=== PATIENT | female | born 1995 | race Caucasian/White ===

== ENCOUNTER 2018-03-28 17:22 | Emergency (ER) | payer OTHER ==
[2018-03-28] MEDS ORDERED: Morphine 2 MG/ML Syringe IVPUSH ONE (17:48)
[2018-03-28] MEDS ORDERED: Ondansetron 4 MG/2 ML SDV IVPUSH ONE (17:48)
[2018-03-28] MEDS ORDERED: Sodium Chloride 0.9% 10 ML Syringe FLUSH PRN (17:48)
[2018-03-28] MEDS ORDERED: Sodium Chloride 0.9% 1,000 ML IV ONE (17:48)
--- NOTE | 2018-03-28 18:15 | EDM.PDOC ---
ED HPI GENERAL MEDICAL PROBLEM - General Chief Complaint: Flank Pain Stated Complaint: ABDOMINAL PAIN Time Seen by Provider: 03/28/18 17:39 Source of Information: Reports: Patient History Limitations: Reports: No Limitations - History of Present Illness INITIAL COMMENTS - FREE TEXT/NARRATIVE: 22-year-old female presents for evaluation and treatment of left-sided flank pain. Patient reports that the pain came on suddenly about an hour to an hour and half prior to arrival in the ER. She states the pain is rated as 8 out of 10. Feels comfortable walking around. she was diagnosed with the urinary tract infection by the walk-in clinic. She was started on antibiotic and has been taking this as prescribed. Reports associated symptoms of nausea. No fevers or vomiting. She took Tylenol for headache around 1300 but continues to have significant pain. Patient feels she has a kidney stone. States 3 years ago she had several kidney st. She's never had a analyzed. She has never had to see urology or had any procedures to break up the kidney stones. Patient is an IUD in place. Last menstrual period was about 2 weeks ago. Left Flank Pain Score (Numeric/FACES): 9 - Related Data Allergies Allergy/AdvReac Type Severity Reaction Status Date / Time Penicillins Allergy Rash Verified 03/28/18 17:34 Sulfa (Sulfonamide Allergy Rash Verified 03/28/18 17:34 Antibiotics) Home Meds: Home Meds Acetaminophen/oxyCODONE [Percocet 325-5 MG] 1 each PO Q4HR PRN #20 tab 03/28/18 [Rx] Nitrofurantoin Macrocrystal [Macrodantin] 100 mg PO BID 03/28/18 [History] Phenazopyridine HCl [Azo Urinary Pain Relief] 1 tab PO TID 03/28/18 [History] Tamsulosin HCl [Flomax] 0.4 mg PO DAILY #10 cap.er.24h 03/28/18 [Rx] Past Medical History Musculoskeletal History: Reports: Other (See Below) Other Musculoskeletal History: back surgery to low back for herniated disc Hematologic History: Reports: Anemia - Past Surgical History GI Surgical History: Reports: Cholecystectomy Social & Family History - Tobacco Use Smoking Status *Q: Never Smoker - Caffeine Use Caffeine Use: Reports: Tea - Recreational Drug Use Recreational Drug Use: No ED ROS GENERAL - Review of Systems Review Of Systems: See Below Constitutional: Denies: Fever, Chills GI/Abdominal: Reports: Abdominal Pain (LLQ), Nausea. Denies: Vomiting : Reports: Flank Pain (left), Frequency (improving). Denies: Dysuria ( improving) Neurological: Reports: Headache ED EXAM, RENAL/ - Physical Exam Exam: See Below Exam Limited By: No Limitations General Appearance: Alert, WD/WN, Anxious, Moderate Distress, Obese, Other ( pacing) Respiratory/Chest: No Respiratory Distress, Lungs Clear, Normal Breath Sounds Cardiovascular: Normal Peripheral Pulses, Regular Rate, Rhythm, No Murmur GI/Abdominal: Normal Bowel Sounds, Soft, Non-Tender Back Exam: Normal Inspection. No: CVA Tenderness (L), CVA Tenderness (R) Neurological: Alert, Oriented, Normal Cognition Psychiatric: Normal Affect, Normal Mood Skin Exam: Warm, Dry, Normal Color Course - Vital Signs Last Recorded V/S: Last Vital Signs Temp 36.3 C 03/28/18 17:30 Pulse 74 03/28/18 18:20 Resp 18 03/28/18 18:20 BP 130/78 03/28/18 18:20 Pulse Ox 99 03/28/18 18:20 - Orders/Labs/Meds Orders: Active Orders 24 hr Category Date Time Status Peripheral IV Care [RC] . DIRECTED Care 03/28/18 17:48 Active Abdomen Pelvis wo Cont [CT] Stat Exams 03/28/18 17:49 Taken CULTURE URINE [RM] Stat Lab 03/28/18 19:20 Received UA W/MICROSCOPIC [URIN] Stat Lab 03/28/18 19:20 Ordered Peripheral IV Insertion Adult [OM.PC] Routine Oth 03/28/18 17:47 Ordered Labs: Laboratory Tests 03/28/18 03/28/18 03/28/18 Range/Units 18:20 18:20 18:20 WBC 7.76 (3.98-10.04) K/mm3 RBC 4.74 (3.98-5.22) M/mm3 Hgb 10.8 L (11.2-15.7) gm/L Hct 35.0 (34.1-44.9) % MCV 73.8 L (79.4-94.8) fl MCH 22.8 L (25.6-32.2) pg MCHC 30.9 L (32.2-35.5) g/dl RDW Std Deviation 46.2 (36.4-46.3) fL Plt Count 289 (182-369) K/mm3 MPV 11.0 (9.4-12.3) fl Neut % (Auto) 72.5 H (34.0-71.1) % Lymph % (Auto) 18.2 L (19.3-51.7) % [place] % (Auto) 8.5 (4.7-12.5) % Eos % (Auto) 0.5 L (0.7-5.8) Baso % (Auto) 0.3 (0.1-1.2) % Neut # (Auto) 5.63 (1.56-6.13) K/mm3 Lymph # (Auto) 1.41 (1.18-3.74) K/mm3 [place] # (Auto) 0.66 H (0.24-0.36) K/mm3 Eos # (Auto) 0.04 (0.04-0.36) K/mm3 Baso # (Auto) 0.02 (0.01-0.08) K/mm3 Manual Slide Review Abnormal smear Sodium 142 (136-145) mEq/L Potassium 3.6 (3.5-5.1) mEq/L Chloride 107 (98-107) mEq/L Carbon Dioxide 25 (21-32) mEq/L Anion Gap 13.6 (5-15) BUN 8 (7-18) mg/dL Creatinine 0.9 (0.55-1.02) mg/dL Est Cr Clr Drug Dosing 99.74 mL/min Estimated GFR (MDRD) > 60 (>60) mL/min BUN/Creatinine Ratio 8.9 L (14-18) Glucose 89 (74-106) mg/dL Calcium 8.5 (8.5-10.1) mg/dL Total Bilirubin 0.3 (0.2-1.0) mg/dL AST 13 L (15-37) U/L ALT 17 (14-59) U/L Alkaline Phosphatase 69 (46-116) U/L C-Reactive Protein < 0.2 (<1.0) mg/dL Total Protein 6.9 (6.4-8.2) g/dl Albumin 3.6 (3.4-5.0) g/dl Globulin 3.3 gm/dL Albumin/Globulin Ratio 1.1 (1-2) HCG, Qual Negative (NEGATIVE) Urine Color (Yellow) Urine Appearance (Clear) Urine pH (5.0-8.0) Ur Specific [place] (1.005-1.030) Urine Protein (Negative) Urine Glucose (UA) (Negative) Urine Ketones (Negative) Urine Occult Blood (Negative) Urine Nitrite (Negative) Urine Bilirubin (Negative) Urine Urobilinogen (0.2-1.0) Ur Leukocyte Esterase (Negative) Urine RBC (0-5) /hpf Urine WBC (0-5) /hpf Ur Epithelial Cells (0-5) /hpf Urine Bacteria (FEW) /hpf Urine Mucus (FEW) /hpf 03/28/18 Range/Units 19:20 WBC (3.98-10.04) K/mm3 RBC (3.98-5.22) M/mm3 Hgb (11.2-15.7) gm/L Hct (34.1-44.9) % MCV (79.4-94.8) fl MCH (25.6-32.2) pg MCHC (32.2-35.5) g/dl RDW Std Deviation (36.4-46.3) fL Plt Count (182-369) K/mm3 MPV (9.4-12.3) fl Neut % (Auto) (34.0-71.1) % Lymph % (Auto) (19.3-51.7) % [place] % (Auto) (4.7-12.5) % Eos % (Auto) (0.7-5.8) Baso % (Auto) (0.1-1.2) % Neut # (Auto) (1.56-6.13) K/mm3 Lymph # (Auto) (1.18-3.74) K/mm3 [place] # (Auto) (0.24-0.36) K/mm3 Eos # (Auto) (0.04-0.36) K/mm3 Baso # (Auto) (0.01-0.08) K/mm3 Manual Slide Review Sodium (136-145) mEq/L Potassium (3.5-5.1) mEq/L Chloride (98-107) mEq/L Carbon Dioxide (21-32) mEq/L Anion Gap (5-15) BUN (7-18) mg/dL Creatinine (0.55-1.02) mg/dL Est Cr Clr Drug Dosing mL/min Estimated GFR (MDRD) (>60) mL/min BUN/Creatinine Ratio (14-18) Glucose (74-106) mg/dL Calcium (8.5-10.1) mg/dL Total Bilirubin (0.2-1.0) mg/dL AST (15-37) U/L ALT (14-59) U/L Alkaline Phosphatase (46-116) U/L C-Reactive Protein (<1.0) mg/dL Total Protein (6.4-8.2) g/dl Albumin (3.4-5.0) g/dl Globulin gm/dL Albumin/Globulin Ratio (1-2) HCG, Qual (NEGATIVE) Urine Color Yellow (Yellow) Urine Appearance Clear (Clear) Urine pH 7.0 (5.0-8.0) Ur Specific [place] 1.015 (1.005-1.030) Urine Protein Negative (Negative) Urine Glucose (UA) Negative (Negative) Urine Ketones Negative (Negative) Urine Occult Blood 2+ H (Negative) Urine Nitrite Negative (Negative) Urine Bilirubin Negative (Negative) Urine Urobilinogen 0.2 (0.2-1.0) Ur Leukocyte Esterase 2+ H (Negative) Urine RBC 10-20 H (0-5) /hpf Urine WBC 20-30 H (0-5) /hpf Ur Epithelial Cells 30-40 H (0-5) /hpf Urine Bacteria Few (FEW) /hpf Urine Mucus Not seen (FEW) /hpf Meds: Medications Discontinued Medications Generic Name Dose Route Start Last Admin Trade Name Freq PRN Reason Stop Dose Admin Sodium Chloride 1,000 mls @ 999 mls/hr 03/28/18 17:48 03/28/18 18:02 Normal Saline IV 03/28/18 18:48 999 mls/hr ONETIME ONE Administration Morphine Sulfate 2 mg 03/28/18 17:48 03/28/18 18:03 Morphine IVPUSH 03/28/18 17:49 2 mg ONETIME ONE Administration Ondansetron HCl 4 mg 03/28/18 17:48 03/28/18 18:02 Zofran IVPUSH 03/28/18 17:49 4 mg ONETIME ONE Administration Sodium Chloride 10 ml 03/28/18 17:48 03/28/18 18:02 Saline Flush FLUSH 10 ml ASDIRECTED PRN Administration Keep Vein Open - Radiology Interpretation Free Text/Narrative:: CT of the abdomen and pelvis without contrast impression per vrad: Or millimeter calcification present within the distal left ureter at the ureterovesicular junction. Mild left hydroureter and hydronephrosis present. - Re-Assessments/Exams Free Text/Narrative Re-Assessment/Exam: 03/28/18 20:11 Patient reports good pain control with the 2 mg IV morphine and good control of nausea. She looks more comfortable at this time. I reviewed the labs and imaging with the patient. She does have a kidney stone. It will likely pass on her own, however, if it does not she will need to see urology. I will have her strain her urine as it sounds she's had multiple stones in the past and has never had these analyze. Encouraged to drink fluids. Will start on Flomax. Percocet for pain control. I will have her continue the Macrobid as prescribed. Follow up with primary care this week. Patient was able to pull up her urine culture from [facility]. Reported gram-positive cocci. No susceptibility report present, possibly contamination. Discharge instructions as documented. Departure - Departure Time of Disposition: 20:11 Disposition: Home, Self-Care 01 Condition: Fair Clinical Impression: Left nephrolithiasis - Discharge Information Prescriptions: Acetaminophen/oxyCODONE [Percocet 325-5 MG] 1 each PO Q4HR PRN #20 tab PRN Reason: Pain Tamsulosin HCl [Flomax] 0.4 mg PO DAILY #10 cap.er.24h Instructions: Kidney Stones, [id number] Referrals: PCP,None [Primary Care Provider] - Denisa Ayala PA-C [Physician Telecommunications Switch Technician] - Forms: ED Department Discharge Additional Instructions: you were given medication in the ER that can affect your ability to drive and operate machinery. Do not drive or operate machinery within 12 hours of taking perception narcotic pain medication. [id number] ibuprofen 800 mg every 6 hours as needed for pain. For pain unrelieved by ibuprofen you may take Percocet 1-2 tabs every 4-6 hours as needed for pain. Do not drive or operate machinery within 12 hours of taking Percocet. Percocet is habit-forming, take as few if these as needed to control your pain. Strain your urine. finish you antibiotic as prescribed. Take the Flomax 1 tab daily. Make sure you're drinking plenty of fluids. Follow-up with family medicine this week for recheck of your symptoms. Recommend Shanta Ojeda or Dr. Camarillo at the [facility]. Call [phone] to schedule with one of them. Please return to the ER if your symptoms change or worsen.ciney. - My Orders Last 24 Hours: My Active Orders 03/28/18 17:47 Peripheral IV Insertion Adult [OM.PC] Routine 03/28/18 17:48 Peripheral IV Care [RC] . DIRECTED 03/28/18 17:49 Abdomen Pelvis wo Cont [CT] Stat 03/28/18 19:20 CULTURE URINE [RM] Stat UA W/MICROSCOPIC [URIN] Stat - Assessment/Plan Last 24 Hours: My Active Orders 03/28/18 17:47 Peripheral IV Insertion Adult [OM.PC] Routine 03/28/18 17:48 Peripheral IV Care [RC] . DIRECTED 03/28/18 17:49 Abdomen Pelvis wo Cont [CT] Stat 03/28/18 19:20 CULTURE URINE [RM] Stat UA W/MICROSCOPIC [URIN] Stat
--- NOTE | 2018-03-29 14:26 | CT ---
CT abdomen and pelvis Technique: Multiple axial sections were obtained from above the dome of the diaphragm inferiorly through the UVJ symphysis. Intravenous and oral contrast was not utilized. Study has been performed as a ureteral stone protocol. Findings: Left-sided hydronephrosis is seen with dilated ureter down to the UVJ caused by a distal left ureteral stone measuring 5.2 mm located at the UVJ. Multiple small nonobstructing calculi are seen within both kidneys measuring less than 5 mm in size. Visualized lung bases show minimal atelectasis. Noncontrast appearance of the liver and spleen appears within normal limits. Adrenal glands show no nodule. Pancreas shows no discrete abnormality. Gallbladder not identified. Aorta shows no aneurysmal dilatation. No retroperitoneal adenopathy or mesenteric abnormalities are seen. Appendix is seen which appears normal in size. No pelvic mass is seen. Cystic change is noted within both ovaries which is felt to be physiologic. Incidental IUD is present within the endometrial cavity of the uterus. Bone window settings were reviewed which show incidental limbus vertebra off the anterior and superior endplates of L4 and L5. Impression: 1. 5.2 mm obstructing stone within the distal left ureter at the UVJ. 2. Multiple small nonobstructing calculi within both kidneys measuring less than 5 mm. 3. Other findings as noted above which are felt to be incidental. Diagnostic code #3 Agree with preliminary report issued by [employer] ([facility] preliminary report dictated on 03/28/18, 8:45 PM Central Time)
== END 2018-03-28 20:23 | disposition home or self-care (01) ==
LOC: JD.ED 17:22
DX: N13.2 Hydronephrosis with renal and ureteral calculous obstruction (principal); Z88.0 Allergy status to penicillin; Z88.2 Allergy status to sulfonamides; Z79.899 Other long term (current) drug therapy; Z90.49 Acquired absence of other specified parts of digestive tract; Z87.442 Personal history of urinary calculi
CPT/HCPCS: 36415; 74176; 80053; 81001; 84703; 85025; 86140; 87086; 96361; 96374; 96375; 99284; J2270; J2405; J7040; J7050

== ENCOUNTER 2019-02-17 04:47 | Emergency (ER) | payer OTHER ==
[2019-02-17] MEDS ORDERED: Ondansetron 4 MG/2 ML SDV IVPUSH ONE ×2 (05:18→08:05)
[2019-02-17] MEDS ORDERED: HYDROmorphone 1 MG/ML Syringe IVPUSH ONE (05:18)
[2019-02-17] MEDS ORDERED: Sodium Chloride 0.9% 10 ML Syringe FLUSH PRN (05:18)
--- NOTE | 2019-02-17 05:22 | EDM.PDOC ---
<Geronimo Wood - Last Filed: 02/17/19 06:58> ED HPI GENERAL MEDICAL PROBLEM - General Chief Complaint: Flank Pain Stated Complaint: KIDNEY STONE Time Seen by Provider: 02/17/19 05:08 Source of Information: Reports: Patient, RN Notes Reviewed - History of Present Illness INITIAL COMMENTS - FREE TEXT/NARRATIVE: 23-year-old female with onset of right back and flank discomfort about 5 hours ago. Technique a couple of pain pills that she had from a prior kidney stone problem which gave her some initial relief but then the pain did come back again with fairly severe right flank and back discomfort at this time. The pain so far has not radiated to the right abdomen or groin. She has had some nausea but no vomiting. She has had some voiding frequency but no dysuria. She does have history of kidney stones on at least 2 prior occasions. She does have history of an IUD in place so "should not be " Right Flank Pain Score (Numeric/FACES): 7 - Related Data Allergies Allergy/AdvReac Type Severity Reaction Status Date / Time Penicillins Allergy Rash Verified 02/17/19 04:59 pineapple Allergy Anaphylactic Verified 02/17/19 04:59 Shock Sulfa (Sulfonamide Allergy Rash Verified 02/17/19 04:59 Antibiotics) Home Meds: Home Meds Hydrocodone/Acetaminophen [Hydrocodon-Acetaminophen 5-325] 1 - 2 each PO Q6HR PRN #20 tablet 02/17/19 [Rx] Ondansetron [Zofran ODT] 4 mg PO Q6H PRN #20 tab.dis 02/17/19 [Rx] Past Medical History Musculoskeletal History: Reports: Other (See Below) Other Musculoskeletal History: back surgery to low back for herniated disc Hematologic History: Reports: Anemia - Past Surgical History GI Surgical History: Reports: Cholecystectomy Social & Family History - Tobacco Use Smoking Status *Q: Never Smoker - Caffeine Use Caffeine Use: Reports: None - Recreational Drug Use Recreational Drug Use: No ED ROS GENERAL - Review of Systems Review Of Systems: See Below Constitutional: Denies: Fever, Chills, Diaphoresis HEENT: Reports: No Symptoms Respiratory: Denies: Shortness of Breath Cardiovascular: Denies: Chest Pain GI/Abdominal: Reports: Nausea. Denies: Abdominal Pain, Vomiting : Reports: Frequency Musculoskeletal: Reports: Back Pain Skin: Reports: No Symptoms Neurological: Reports: No Symptoms ED EXAM, RENAL/ - Physical Exam Exam: See Below General Appearance: Alert, Moderate Distress Throat/Mouth: Normal Inspection Head: Atraumatic Neck: Supple Respiratory/Chest: No Respiratory Distress, Lungs Clear, Normal Breath Sounds Cardiovascular: Regular Rate, Rhythm GI/Abdominal: Soft, Non-Tender. No: Guarding Back Exam: CVA Tenderness (R) Extremities: Normal Inspection Neurological: Alert, Oriented, No Motor/Sensory Deficits Skin Exam: Warm, Dry, Normal Color, No Rash Course - Vital Signs Last Recorded V/S: Last Vital Signs Temp 97.1 F 02/17/19 08:11 Pulse 66 02/17/19 08:11 Resp 16 02/17/19 08:11 BP 123/69 02/17/19 08:11 Pulse Ox 97 02/17/19 08:11 - Orders/Labs/Meds Orders: Active Orders 24 hr Category Date Time Status Peripheral IV Care [RC] . DIRECTED Care 02/17/19 05:18 Active Sodium Chloride 0.9% [Saline Flush] Med 02/17/19 05:18 Active 10 ml FLUSH ASDIRECTED PRN Peripheral IV Insertion Adult [OM.PC] Stat Oth 02/17/19 05:17 Ordered Medication Orders Sodium Chloride (Saline Flush) 10 ml FLUSH ASDIRECTED PRN PRN Reason: Keep Vein Open Last Admin: 02/17/19 05:31 Dose: 10 ml Labs: Laboratory Tests 02/17/19 02/17/19 02/17/19 Range/Units 05:05 05:05 05:28 WBC 7.08 (3.98-10.04) K/mm3 RBC 4.78 (3.98-5.22) M/mm3 Hgb 13.0 (11.2-15.7) gm/L Hct 39.6 (34.1-44.9) % MCV 82.8 (79.4-94.8) fl MCH 27.2 (25.6-32.2) pg MCHC 32.8 (32.2-35.5) g/dl RDW Std Deviation 43.3 (36.4-46.3) fL Plt Count 246 (182-369) K/mm3 MPV 11.0 (9.4-12.3) fl Neut % (Auto) 66.4 (34.0-71.1) % Lymph % (Auto) 21.8 (19.3-51.7) % [place] % (Auto) 10.5 (4.7-12.5) % Eos % (Auto) 1.1 (0.7-5.8) Baso % (Auto) 0.1 (0.1-1.2) % Neut # (Auto) 4.70 (1.56-6.13) K/mm3 Lymph # (Auto) 1.54 (1.18-3.74) K/mm3 [place] # (Auto) 0.74 H (0.24-0.36) K/mm3 Eos # (Auto) 0.08 (0.04-0.36) K/mm3 Baso # (Auto) 0.01 (0.01-0.08) K/mm3 Sodium (136-145) mEq/L Potassium (3.5-5.1) mEq/L Chloride (98-107) mEq/L Carbon Dioxide (21-32) mEq/L Anion Gap (5-15) BUN (7-18) mg/dL Creatinine (0.55-1.02) mg/dL Est Cr Clr Drug Dosing mL/min Estimated GFR (MDRD) (>60) mL/min BUN/Creatinine Ratio (14-18) Glucose (74-106) mg/dL Calcium (8.5-10.1) mg/dL Total Bilirubin (0.2-1.0) mg/dL AST (15-37) U/L ALT (14-59) U/L Alkaline Phosphatase (46-116) U/L Total Protein (6.4-8.2) g/dl Albumin (3.4-5.0) g/dl Globulin gm/dL Albumin/Globulin Ratio (1-2) Lipase (73-393) U/L HCG, Qual (NEGATIVE) Urine Color Yellow (Yellow) Urine Appearance Clear (Clear) Urine pH 7.0 (5.0-8.0) Ur Specific [place] 1.020 (1.005-1.030) Urine Protein Trace H (Negative) Urine Glucose (UA) Negative (Negative) Urine Ketones Negative (Negative) Urine Occult Blood Negative (Negative) Urine Nitrite Negative (Negative) Urine Bilirubin Negative (Negative) Urine Urobilinogen 0.2 (0.2-1.0) Ur Leukocyte Esterase 1+ H (Negative) Urine RBC 0-5 (0-5) /hpf Urine WBC 0-5 (0-5) /hpf Ur Epithelial Cells 20-30 H (0-5) /hpf Urine Bacteria Few (FEW) /hpf Urine Mucus Few (FEW) /hpf Urine HCG, Qual Negative (NEGATIVE) 02/17/19 02/17/19 Range/Units 05:28 05:28 WBC (3.98-10.04) K/mm3 RBC (3.98-5.22) M/mm3 Hgb (11.2-15.7) gm/L Hct (34.1-44.9) % MCV (79.4-94.8) fl MCH (25.6-32.2) pg MCHC (32.2-35.5) g/dl RDW Std Deviation (36.4-46.3) fL Plt Count (182-369) K/mm3 MPV (9.4-12.3) fl Neut % (Auto) (34.0-71.1) % Lymph % (Auto) (19.3-51.7) % [place] % (Auto) (4.7-12.5) % Eos % (Auto) (0.7-5.8) Baso % (Auto) (0.1-1.2) % Neut # (Auto) (1.56-6.13) K/mm3 Lymph # (Auto) (1.18-3.74) K/mm3 [place] # (Auto) (0.24-0.36) K/mm3 Eos # (Auto) (0.04-0.36) K/mm3 Baso # (Auto) (0.01-0.08) K/mm3 Sodium 138 (136-145) mEq/L Potassium 4.0 (3.5-5.1) mEq/L Chloride 105 (98-107) mEq/L Carbon Dioxide 23 (21-32) mEq/L Anion Gap 14.0 (5-15) BUN 10 (7-18) mg/dL Creatinine 0.8 (0.55-1.02) mg/dL Est Cr Clr Drug Dosing 115.28 mL/min Estimated GFR (MDRD) > 60 (>60) mL/min BUN/Creatinine Ratio 12.5 L (14-18) Glucose 100 (74-106) mg/dL Calcium 8.4 L (8.5-10.1) mg/dL Total Bilirubin 0.3 (0.2-1.0) mg/dL AST 21 (15-37) U/L ALT 23 (14-59) U/L Alkaline Phosphatase 74 (46-116) U/L Total Protein 6.6 (6.4-8.2) g/dl Albumin 3.2 L (3.4-5.0) g/dl Globulin 3.4 gm/dL Albumin/Globulin Ratio 0.9 L (1-2) Lipase 95 (73-393) U/L HCG, Qual Negative (NEGATIVE) Urine Color (Yellow) Urine Appearance (Clear) Urine pH (5.0-8.0) Ur Specific [place] (1.005-1.030) Urine Protein (Negative) Urine Glucose (UA) (Negative) Urine Ketones (Negative) Urine Occult Blood (Negative) Urine Nitrite (Negative) Urine Bilirubin (Negative) Urine Urobilinogen (0.2-1.0) Ur Leukocyte Esterase (Negative) Urine RBC (0-5) /hpf Urine WBC (0-5) /hpf Ur Epithelial Cells (0-5) /hpf Urine Bacteria (FEW) /hpf Urine Mucus (FEW) /hpf Urine HCG, Qual (NEGATIVE) Meds: Medications Generic Name Dose Route Start Last Admin Trade Name Nitin PRN Reason Stop Dose Admin Sodium Chloride 10 ml 02/17/19 05:18 02/17/19 05:31 Saline Flush FLUSH 10 ml ASDIRECTED PRN Administration Keep Vein Open Discontinued Medications Generic Name Dose Route Start Last Admin Trade Name Nitin PRN Reason Stop Dose Admin Hydromorphone HCl 1 mg 02/17/19 05:18 02/17/19 05:30 Dilaudid IVPUSH 02/17/19 05:19 0.5 mg ONETIME ONE Administration Metoclopramide HCl 5 mg 02/17/19 06:35 02/17/19 06:41 Reglan IVPUSH 02/17/19 06:36 5 mg ONETIME ONE Administration Ondansetron HCl 4 mg 02/17/19 05:18 02/17/19 05:30 Zofran IVPUSH 02/17/19 05:19 4 mg ONETIME ONE Administration Ondansetron HCl 4 mg 02/17/19 08:05 02/17/19 08:08 Zofran IVPUSH 02/17/19 08:06 4 mg ONETIME ONE Administration - Re-Assessments/Exams Free Text/Narrative Re-Assessment/Exam: 02/17/19 06:37. Urine test is negative, does not show UTI. With her discomfort right back and flank and history of prior kidney stones there was strong concern for recurrent kidney stone. CT of abdomen pelvis does multiple 2- 3 mm stones in each kidney but no evidence for ureterolithiasis or hydronephrosis. However there is a large 9 cm right ovarian cyst. Small amount of fluid in the cul-de-sac. Pelvic ultrasound suggested to further evaluate the ovarian cyst. Radiology does hold a 7:30 slot open for emergency ultrasound which is only 50 minutes from now also patient will wait, get the ultrasound done for further information. She is doing okay for pain after 0.5 mg Dilaudid IV but is getting more nauseated, will give Reglan 5 mg IV at this time. 02/17/19 06:58. Pelvic ultrasound has been recommended by radiology. She is willing to wait for the 7:30 emergency slot that is available for ED patients. Order has been submitted. It is change of shift, Will transfer care to Dr Perry at this time. Departure - Departure Disposition: Home, Self-Care 01 Clinical Impression: Ovarian cyst Qualifiers: Laterality: right Qualified Code(s): N83.201 - Unspecified ovarian cyst, right side - Discharge Information Prescriptions: Hydrocodone/Acetaminophen [Hydrocodon-Acetaminophen 5-325] 1 - 2 each PO Q6HR PRN #20 tablet PRN Reason: Pain Ondansetron [Zofran ODT] 4 mg PO Q6H PRN #20 tab.dis PRN Reason: Nausea\\vomiting Referrals: PCP,None [Primary Care Provider] - Nimco Herrera MD [Physician] - 3 Days Forms: ED Department Discharge Additional Instructions: Take tylenol or motrin for pain. If that does not help, try the hydrocodone. Take zofran as needed for nausea or vomiting. Follow up with Dr Herrera this week or early next week. Please return if you are worse. <Shilo Perry - Last Filed: 02/17/19 09:13> Course - Re-Assessments/Exams Free Text/Narrative Re-Assessment/Exam: 02/17/19 09:[address] Wood. I ordered some labs and they look good. Her CBC and CMP look good. Her UA shows no UTI. Her lipase is normal. She had more nausea so I ordered more zofran. The US shows a 6.8cm simple appearing cyst within the right ovary. Free fluid within the pelvis likely representing cyst leakage. Recommend repeat pelvic US in 3-4 months to evaluate for resolution. She feels better. I will get her something for pain and nausea and have her follow up with Dr Herrera. Departure - Departure Time of Disposition: 09:10 Condition: Good - Discharge Information *PRESCRIPTION DRUG MONITORING PROGRAM REVIEWED*: No *COPY OF PRESCRIPTION DRUG MONITORING REPORT IN PATIENT DAIN: No
[2019-02-17] MEDS ORDERED: Metoclopramide 10 MG/2 ML SDV IVPUSH ONE (06:35)
--- NOTE | 2019-02-17 08:16 | CT ---
CT abdomen and pelvis Technique: Multiple axial sections were obtained of the diaphragm inferiorly through the pubic symphysis. Intravenous and oral contrast was not utilized. Study has been performed as a ureteral stone protocol. Comparison: Previous CT abdomen and pelvis exam of 03/28/18. Findings: Small portion of the visualized lung bases show nothing acute. Noncontrast appearance of the liver and spleen appear within normal limits. Adrenal glands show no nodule. Gallbladder is not identified. Pancreas appears within normal limits. Aorta shows no aneurysm. Appendix is seen which is normal in size. No retroperitoneal adenopathy or mesenteric abnormalities are seen. IUD present within the uterus. Cyst is noted adjacent to the right side of the uterus measuring 8.5 cm in size presumably representing large ovarian cyst. There is a small amount of free fluid seen posteriorly most likely due to cyst leakage. No additional pelvic abnormality is seen. Small nonobstructing calculi are seen within both kidneys which appear similar to prior CT exam. No ureteral dilatation or ureteral stone is seen. Bone window settings were reviewed which showed small incidental limbus vertebra within the anterior and superior endplates of L4 and L5. No acute osseous abnormality is seen. Impression: 1. Small nonobstructing bilateral renal calculi. No ureteral dilatation or ureteral stone is seen. 2. 8.5 cm right ovarian cyst with a small amount of fluid within the pelvis most likely due to cyst leakage. 3. Other incidental findings as noted above. Diagnostic code #3 I agree with preliminary report from [facility], finalized on 02/17/19, 6:59 AM Central Time
--- NOTE | 2019-02-17 09:00 | US ---
Pelvic ultrasound: Multiple real-time images were obtained transvaginally. Comparison: Previous CT abdomen and pelvis study performed earlier the same day (05:39 AM). Large simple appearing cyst is noted within the right ovary measuring 6.8 cm which correlates to the finding on CT exam. There is some free fluid being seen within the pelvis most likely representing cyst leakage. Small collapsing cyst is noted within the left ovary measuring 2.1 cm which is felt to be physiologic. Uterus is anteverted. Endometrial thickness is 8.3 mm which is normal. IUD is present within the endometrial cavity. No myometrial abnormality is identified. Measurements: Uterus: Length 10.6 cm, AP height 5.5 cm, transverse width 5.8 cm Right ovary (including cyst) 8.2 x 7.7 x 6.2 cm Left ovary: 3.5 x 2.2 x 2.7 cm Impression: 1. 6.8 cm simple appearing cyst within the right ovary. Free fluid within the pelvis likely representing cyst leakage. Recommend repeat pelvic ultrasound in 3-4 months to evaluate for resolution. 2. Other incidental findings as noted above. Diagnostic code #3
== END 2019-02-17 09:28 | disposition home or self-care (01) ==
LOC: JD.ED 04:47
DX: N83.201 Unspecified ovarian cyst, right side (principal); Z88.0 Allergy status to penicillin; Z88.2 Allergy status to sulfonamides; Z91.018 Allergy to other foods
CPT/HCPCS: 36415; 74176; 76830; 80053; 81001; 81025; 83690; 84703; 85025; 96374; 96375; 96376; 99284; J1170; J2405; J2765

== ENCOUNTER 2022-02-16 12:06 | Emergency (ER) | payer OTHER ==
[2022-02-16] MEDS ORDERED: Sodium Chloride 0.9% 10 ML Syringe FLUSH PRN (12:17)
[2022-02-16] MEDS ORDERED: Sodium Chloride 0.9% 1,000 ML IV STA (12:33)
[2022-02-16] MEDS ORDERED: HYDROmorphone 0.5 MG/0.5 ML Syringe IVPUSH ONE (12:33)
[2022-02-16] MEDS ORDERED: Ondansetron 4 MG/2 ML SDV IVPUSH ONE ×2 (12:33→14:04)
[2022-02-16] MEDS ORDERED: Ketorolac 30 MG/ML SDV IVPUSH ONE (12:34)
[2022-02-16] MEDS ORDERED: Tamsulosin 0.4 MG Cap.ER PO ONE (13:52)
[2022-02-16] MEDS ORDERED: cefTRIAXone 2 GM in Sodium Chloride 0.9% 100 ML IV SCH (14:00)
== END 2022-02-16 14:40 | disposition home or self-care (01) ==
LOC: JD.ED 12:06
DX: N13.2 Hydronephrosis with renal and ureteral calculous obstruction (principal); Z88.0 Allergy status to penicillin; Z88.2 Allergy status to sulfonamides; Z91.018 Allergy to other foods
CPT/HCPCS: 36415; 74176; 80053; 81001; 81025; 85025; 86140; 87086; 96365; 96375; 96376; 99284; A9270; J0696; J1170; J1885; J2405; J7030